=== PATIENT | female | born 1960 | race Caucasian/White ===

== ENCOUNTER 2018-01-02 17:07 | Emergency (ER) | payer MEDICAID ==
[~2018-01-02] VITALS: Ht 172.7 cm; Wt 40.4 kg
[2018-01-02 17:16] VITALS: BP 217/116; PULSE 86; RESP 16; TEMP 98; O2SAT 96
[2018-01-02] MEDS ORDERED: LISI10TA3 PO (17:34)
[2018-01-02] MEDS ORDERED: BACITRACIN TOP OINT 15 GM TUBE TOPICAL ONE (17:45)
[2018-01-02] MEDS ORDERED: SULFAMETHOXAZOLE-TRIMETHOPRIM DS 800-160 MG TAB PO ONE (17:45)
[2018-01-02] MEDS ORDERED: LISINOPRIL 5 MG TAB PO ONE (17:45)
[2018-01-02] MEDS ORDERED: CEPHALEXIN MONOHYDRATE 500 MG CAP PO ONE (17:45)
[2018-01-02] MEDS ORDERED: MUPI2OIN TOPICAL (17:47)
[2018-01-02] MEDS ORDERED: CEPH-460 PO (17:47)
[2018-01-02] MEDS ORDERED: BACT800T5 PO (17:47)
--- NOTE | 2018-01-02 17:48 | PD ---
HPI Chief Complaint: Fall Time Seen by Provider: 17:26 Travel History International Travel<30 days: No Contact w/Intl Traveler<30days: No Traveled to known affect area: No History of Present Illness HPI Patient is a 57-year-old female who presents the emergency room for evaluation of infection to her right forearm. Patient reports that one week ago, she was moving a big boom box up the stairs, reports that when she reached the top of the staircase, she fell right onto the floor. Reports that she landed on her right forearm. Patient reports that she suffered multiple abrasions and skin tears to her right forearm. Patient denies any trauma to the head or neck, denies any loss of consciousness, denies dizziness or headache at this time. Patient reports concern as she is developing an infection to her right forearm. Patient reports no pain with range of motion to her right shoulder, right elbow or her right wrist, reports that she did notice redness to her right forearm which is concerning. Patient reports that her tetanus is up-to-date. Patient with no fever or chills, patient with no other complaints at this time. Patient does have history of hypertension, she is supposed to be taking lisinopril, patient reports that she has not taken her medications for the past month as she hates taking medications. Patient does have a prescription and does have a bottle full of lisinopril, reports that she is overall noncompliant. PFSH Past Medical History Cardiovascular Problems: Yes (htn not taking meds) Respiratory: Yes (copd) ?: Not Past Surgical History Surgical History: No Previous Surgery Social History Alcohol Use: No Tobacco Use: Yes Substance Use: No Allergies-Medications (Allergen,Severity, Reaction): Coded Allergies: No Known Allergies (Unverified , 01/02/18) Reported Meds & Prescriptions Reported Meds & Active Scripts Active Reported Lisinopril 10 Mg Tab 10 Mg PO DAILY Review of Systems General / Constitutional: No: Fever, Chills Eyes: No: Visual changes HENT: No: Headaches Cardiovascular: No: Chest Pain or Discomfort Respiratory: No: Shortness of Breath Gastrointestinal: No: Abdominal Pain Genitourinary: No: Dysuria Musculoskeletal: No: Pain Skin: Positive Other (Redness to the right forearm), No Rash Neurologic: No: Weakness Psychiatric: No: Depression Endocrine: No: Polydipsia Hematologic/Lymphatic: No: Easy Bruising Physical Exam Narrative GENERAL: No acute distress, nontoxic SKIN: Focused skin assessment warm/dry. HEAD: Atraumatic. Normocephalic. EYES: Pupils equal and round. No scleral icterus. No injection or drainage. ENT: No nasal bleeding or discharge. Mucous membranes pink and moist. NECK: Trachea midline. No JVD. CARDIOVASCULAR: Regular rate and rhythm. No murmur appreciated. RESPIRATORY: No accessory muscle use. Clear to auscultation. Breath sounds equal bilaterally. GASTROINTESTINAL: Abdomen soft, non-tender, nondistended. Hepatic and splenic margins not palpable. MUSCULOSKELETAL: No obvious deformities. No clubbing. No cyanosis. Patient has increased erythema to her right forearm, erythema is not circumferential, she does have multiple skin tears which appear infected, it appears honey crusted in nature with no drainage, patient with no point tenderness to right shoulder/elbow or forearm or wrist. pulses intact, neurovascular intact, left upper extremity with normal examination NEUROLOGICAL: Awake and alert. No obvious cranial nerve deficits. Motor grossly within normal limits. Normal speech. PSYCHIATRIC: Appropriate mood and affect; insight and judgment normal. Data Data Last Documented VS Vital Signs Date Time Temp Pulse Resp B/P (MAP) Pulse Ox O2 Delivery O2 Flow Rate FiO2 01/02/18 17:16 98.0 86 16 217/116 (149) 96 Orders Orders Lisinopril (Prinivil) (01/02/18 17:45) Sulfamet-Trimeth Ds 800-160 Mg (Bactrim (01/02/18 17:45) Cephalexin (Keflex) (01/02/18 17:45) Bacitracin Oint (Baciguent Oint) (01/02/18 17:45) [facility] Medical Decision Making Medical Screen Exam Complete: Yes Emergency Medical Condition: Yes Medical Record Reviewed: Yes Interpretation(s) Vital Signs Date Time Temp Pulse Resp B/P (MAP) Pulse Ox O2 Delivery O2 Flow Rate FiO2 01/02/18 17:16 98.0 86 16 217/116 (149) 96 Differential Diagnosis Accelerated hypertension with medication noncompliance, forearm cellulitis Narrative Course During the course of the patients emergency department visit, the patients history, examination, and differential diagnosis were reviewed with the patient. Patient with no signs of any fractures, she does have what appears to be a cellulitis to her right forearm. Patient with no fever or chills, her tetanus is up-to-date. Plan to administer Bactrim as well as Keflex for treatment of her cellulitis with infected and open skin tears to her right forearm. Patient does not require any x-rays at this time there is no apparent fractures. Patient understands need for return to the emergency room or to her primary care doctor's office in 48 hours for reevaluation of her cellulitis with open wounds. Encourage her to place antibiotic ointment to her wounds. As per patient's blood pressure, patient does have history of hypertension, she is supposed to be taking lisinopril, encouraged her to be compliant with her medications. Patient understands risks of having hypertension, she is not currently asymptomatic, will give her dose of lisinopril in the emergency room. Patient reports that she has plenty of medications at home, she will start taking it tomorrow. Signs and symptoms of when to return to the emergency room was reviewed with patient in detail. Diagnosis Primary Impression: Cellulitis of forearm, right Additional Impression: Hypertension Qualified Codes: I10 - Essential (primary) hypertension Patient Instructions: General Instructions Additional Instructions: Please have your primary care doctor reevaluate your wound and infection in 48 hours Return to the emergency room if you develop any fevers or chills or progressing symptoms of infection Please take your antihypertensive medications as directed, you will need follow- up with the primary care doctor for blood pressure reevaluation Return to the emergency room as needed. Complete full course of antibiotics. Med/Other Pt SpecificInfo: Prescription(s) given Scripts Mupirocin Topical (Mupirocin Topical) 2 % Oint 1 APPLIC TOPICAL BID for Mgmt Bacterial Infection, #22 GM 0 Refills Prov: Monica Barreto DO 01/02/18 Cephalexin (Keflex) 500 Mg Cap 500 MG PO Q6H for Infection for 10 Days, #40 CAP 0 Refills Prov: Monica Barreto DO 01/02/18 Sulfamethoxazole-Trimethoprim (Bactrim DS) 800-160 Mg Tab 1 TAB PO BID for Infection, #20 TAB 0 Refills Prov: Monica Barreto DO 01/02/18 Disposition: 01 DISCHARGE HOME Condition: Stable Monica Barreto DO Jan 02, 2018 17:48
== END 2018-01-02 18:11 | disposition home or self-care (01) ==
LOC: PHED 17:07
DX: S51.811A Laceration without foreign body of right forearm, initial encounter (principal); L03.113 Cellulitis of right upper limb; W19.XXXA Unspecified fall, initial encounter; I10 Essential (primary) hypertension; J44.9 Chronic obstructive pulmonary disease, unspecified; Z91.14 Patient's other noncompliance with medication regimen; Z72.0 Tobacco use
CPT/HCPCS: 99283